=== PATIENT | female | born 1935 | race Hispanic/Latino ===

== ENCOUNTER → 2024-02-27 | Outpatient (REF) | payer MEDICARE, OTHER ==
[~2024-02-27] MED LIST: IOPAMIDOL 370 MG/ML 100 ML INFUS..BTL INJ ONE
[2024-02-27 14:41] LABS: CREATININE, SERUM 0.97 mg/dL (0.57-1.11)
== END ==
LOC: CT 13:37
PROVIDERS: ATTEND Nurse Practitioner Family
DX: R10.9 Unspecified abdominal pain (principal)
CPT/HCPCS: 36415; 74177; 82565; 84520; Q9967